=== PATIENT | female | born 1985 | race Caucasian/White ===

== ENCOUNTER 2019-05-03 07:15 | Emergency (ER) | payer OTHER ==
[~2019-05-03] VITALS: Ht 195.6 cm; Wt 142.9 kg
--- NOTE | 2019-05-03 07:22 | NUR ---
Patient BIB [facility] for c/o L wrist pain. A/Ox4. No LOC. Speech is clear, speaks in complete sentences. No acute neuro deficits. Per EMS patient reported getting out of a taxi just [employer] and she tripped over her cane trying to get out and fell on her left wrist. Denies any numbness in tingling in extremity. Denies any MILLS, cp, sob, n/v/d. Patient in bed at lowest position, sr upx2, call light within reach. Fall precautions implemented per protocol.
[2019-05-03] MEDS ORDERED: HYDROCODONE/APAP 10-325 MG TABLET ONE (07:38)
--- NOTE | 2019-05-03 07:41 | NUR ---
orthodontic lab technician at bedside performing scan
[2019-05-03] MEDS ORDERED: HYDROCODONE/APAP 10-325 MG TABLET PO ONE (07:45)
--- NOTE | 2019-05-03 08:16 | NUR ---
Patient discharged to home in stable conditon. Written and verbal after care instructions given. Patient verbalizes understanding of instructions. Patient ambulated with stable gait. Patient will be picked up by [facility].
[2019-05-03 08:24] VITALS: BP 139/89
== END 2019-05-03 08:36 | disposition home or self-care (01) ==
LOC: ER 07:15
DX: S52.602A Unspecified fracture of lower end of left ulna, initial encounter for closed fracture (principal); F32.9 Major depressive disorder, single episode, unspecified; W01.0XXA Fall on same level from slipping, tripping and stumbling without subsequent striking against object, initial encounter; Y93.89 Activity, other specified; Y92.89 Other specified places as the place of occurrence of the external cause; Y99.8 Other external cause status
CPT/HCPCS: 73110; A4663